=== PATIENT | male | born 1945 | race Caucasian/White ===

== ENCOUNTER 2016-05-27 15:10 | Emergency (ER) | payer MEDICARE, BC ==
[~2016-05-27 15:10] MED LIST: ATIVAN0.5 M1 PO; AUGMENTIN 875-1 EAC2 PO; ELIQUIS2.5 M1 PO; FLECAINIDE; FLECAINIDE ACET50 M1 PO; LAMICTAL200 M2 PO; LITHIUM CA300 MG/TAB PO; LUMIGAN2.5 M2 OP; NORCO 5/3251 TAB PO; XARELTO20 M1 PO
== END 2016-05-27 15:31 ==
LOC: EDMED 15:10
DX: F32.9 Major depressive disorder, single episode, unspecified (principal); Z79.899 Other long term (current) drug therapy